=== PATIENT | female | born 1990 | race African-American/Black ===

== ENCOUNTER 2024-10-26 01:22 | Day surgery (SDC) | payer OTHER, SELFPAY ==
[2024-10-03 11:51] VITALS: BMI 50.9
--- NOTE | 2024-10-03 12:00 | PC.NURSE ---
Report to the Outpatient Waiting Room, entrance under the green pavilion located off [facility], at time _0800_ on date _[id number]_. Planned Procedure Time: _1000_.? Time changes happen often and if your time is changed the preop area will call you the afternoon before. - You and your visitor will be asked to self-screen and do not enter if you have any COVID symptoms. Please call surgeon if you need to reschedule. - A mask is optional within the hospital at this time. Patients may have clear liquids (water, carbonated beverages, clear teas, apple juice) until 3 hours prior to surgery with a maximum of 20 ounces. - No food from midnight until time of surgery and no smoking, or chewing tobacco (or any form of nicotine). No chewing gum, candy or mints. Take only the following medications with a SIP of water on the morning of surgery: ___Inhalers if needed.____ DO NOT STOP ANY OF YOUR OTHER PRESCRIPTION MEDICATIONS PRIOR TO SURGERY EXCEPT THE FOLLOWING Hold all vitamins and supplements for 3 days per anesthesiologist. Medications to discontinue per physician Date to take last dose Please no make-up, nail persian, hairspray, perfume, deodorant, or body powder the day of surgery.? No jewelry (including any body piercings) or valuables the day of surgery, leave them at home.? Please take a shower or bath the night before, or the morning of, surgery with an antibacterial soap.? Wear comfortable, loose fitting clothing.? - Jewelry must be removed prior to entering the operating room.? Rings and piercings that are not removed may be cut off. - The hospital will not accept responsibility for valuables.? - Please leave all valuables, including medications, at home the day of surgery. If you are going home after surgery, a licensed tank driver must drive you home.? - NO public transportation without another adult if you receive anesthesia. - We recommend that an adult stay with you for 24 hours following discharge. - We also recommend that you do not drive, make important decision, drink alcoholic beverages, or take any drugs that were not prescribed by your health care provider for at least 24 hours after your discharge time. Follow any additional instructions given to you from your surgeon. Telephone instructions given to __Erin__and asked if any additional questions and then verbalized understanding. Patient advised to call surgeon office or pre surgery nurse liaison [phone] if any additional questions.
--- NOTE | 2024-10-12 14:00 | SUR.PREOP ---
PER PATIENT NO CHANGED IN HEALTH HISTORY OR MEDICATION LIST SINCE PREVIOUS INTERVIEW ON 10/03/24. NEW TIMES AND INSTRUCTIONS PROVIDED TO PATIENT BY THIS RN.
--- NOTE | 2024-10-12 14:01 | SUR.PREOP ---
Report to the Outpatient Waiting Room, entrance under the green pavilion located off [facility], at time _0730_ on date _10-26-2024_. Planned Procedure Time: _0930_.? Time changes happen often and if your time is changed the preop area will call you the afternoon before. - You and your visitor will be asked to self-screen and do not enter if you have any COVID symptoms. Please call surgeon if you need to reschedule. - A mask is optional within the hospital at this time. Patients may have clear liquids (water, carbonated beverages, clear teas, apple juice) until 3 hours (0630) prior to surgery with a maximum of 20 ounces. - No food from midnight until time of surgery and no smoking, or chewing tobacco (or any form of nicotine). No chewing gum, candy or mints. - Infants may have breast milk until 4 hours before surgery, infant formula 6 hours prior to surgery. - Children will be allowed to drink immediately following surgery.? If applicable, please bring a bottle or sippy cup to assist with drinking. Juice, water, soda, and popsicles are readily available.? For infants on formula, please bring formula the day of surgery.? Pacifiers are allowed. Take only the following medications with a SIP of water on the morning of surgery: _Inhaler if needed_ DO NOT STOP ANY OF YOUR OTHER PRESCRIPTION MEDICATIONS PRIOR TO SURGERY EXCEPT THE FOLLOWING Hold all vitamins and supplements for 3 days per anesthesiologist. Medications to discontinue per physician _NA_ Date to take last dose_NA_ Please no make-up, nail malay, hairspray, perfume, deodorant, or body powder the day of surgery.? No jewelry (including any body piercings) or valuables the day of surgery, leave them at home.? Please take a shower or bath the night before, or the morning of, surgery with an antibacterial soap.? Wear comfortable, loose fitting clothing.? Children are encouraged to wear pajamas. - Jewelry must be removed prior to entering the operating room.? Rings and piercings that are not removed may be cut off. - The hospital will not accept responsibility for valuables.? - Please leave all valuables, including medications, at home the day of surgery. If you are going home after surgery, a licensed student truck driver must drive you home.? - NO public transportation without another adult if you receive anesthesia. - We recommend that an adult stay with you for 24 hours following discharge. - We also recommend that you do not drive, make important decision, drink alcoholic beverages, or take any drugs that were not prescribed by your health care provider for at least 24 hours after your discharge time. For Pediatric surgeries, we recommend two adults accompany the child home. Follow any additional instructions given to you from your surgeon. Telephone instructions given to _Erin_and asked if any additional questions and then verbalized understanding. Patient advised to call surgeon office or pre surgery nurse liaison [phone] if any additional questions.
[2024-10-26] VITALS (9 sets, daily range): BP systolic 124–143; BP diastolic 65–87; PULSE 65–85; RESP 14–20; TEMP 36.1–36.8; O2SAT 100; BMI 51.0
--- OUTSIDE RECORDS SUMMARY | 2024-10-26 01:26 | XMS_ITS | Encounter Summary ---
Author Organization [facility] Address [address] [place] [id number] Care Team Providers Care Barkeeper Name Role Phone Lizbeth Perales MD Primary Care Provider [phone] Encounter Details Date Type Department Care Team (Late st Contact Info) Description 02/06/2022 [facility] [address] [place] [address] [place] [address] [place] [id number] [employer] Social History Tobacco Use Types Packs/Day Years Used Date Smoking Tobacco: Never Smokeless Tobacco: Never Alcohol Use Standard Drinks/Week Comments Yes 0 (1 standard drink = 0.6 oz pur e alcohol) socially PHQ-2 Answer Date Recorded PHQ-2 Score - If the patient scores above 3, please move on to questions 3-9 0 12/13/2020 Comments No Sex and Gender Information Value Date Recorded Sex Assigned at Not on file Legal Sex Female 8:11 PM CDT Gender Identity Female 09/16/2021 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 No / Unsure 01/31/2022 9:01 AM CDT documented as of this encounter Progress Notes * Vito Espinal MA - 03/19/2022 4:11 PM CDT Pt informed and will call to schedule appt once she recieves medication * Lizbeth Perales MD - 03/19/2022 2:40 PM CDT Sent Contrave Rx to [place] for this pt. Pt italia lneed an appt for 1 month from when she starts this regimen to assess the effectiveness of it. Thanks! ~Dr Amato * Vito Espinal MA - 03/19/2022 2:08 PM CDT Called pt to check to see if this was done. And it was not can you send pt medication for[place]rave to [place] * Karla Green - 03/19/2022 2:03 PM CDT This message was sent to the triage pool on 02/06. Its more of an FYI, but I wasn't sure if Dr. Perales has seen it yet. * Karla Green - 03/19/2022 2:03 PM CDTFrom: Erin Lowe To: Dr. Lizbeth Perales Sent: 02/06/2022 4:14 PM CDT Subject: RAFAEL Perales, I have enrolled in the [employer] Savings Coupon Card. 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
--- OUTSIDE RECORDS SUMMARY | 2024-10-26 01:26 | XMS_ITS | Referral Summary ---
Author Organization [facility] Address [address] [place] [address] Care Team Providers Care Van Driver Helper Name Role Phone Shweta Ambrose APRN Primary Ca re Provider Encounters Date Type Department Care Team Description 09/29/2024 Plan of Care Documentation [facility] OP Physical Therapy [address] [place] [id number] 09/29/2024 2:30 PM PUBLIC SAFETY OFFICER Therapy [facility] OP Physical Therapy [address] [place] [phone] Debora Calderon, PT Coccyx pain (Primary Dx); Pelvic and perineal pain 09/16/2024 9:30 AM PUBLIC SAFETY OFFICER Office Visit [facility] Care at [address] [phone] Sara Coronado NP Influenza A (Primary Dx); Upper respiratory tract infection, unspecified type 09/05/2024 9:43 AM PUBLIC SAFETY OFFICER - 09/05/2024 11:59 PM PUBLIC SAFETY OFFICER Hospital Encounter [facility] [address] [place] [id number] Low back pain, unspecified back pain laterality, unspecified chronicity, unspecified whether sciatica present; Right hip pain Discharge Disposition: Discharge to home or self care 08/31/2024 Documentation [facility] OP Physical Therapy [address] [place] [id number] Debora Calderon, PT from Last 3 Months Allergies Active Allergy Reactions Criticality Noted Date Comments Amoxicillin Rash Medium 03/23/2023 Cephalexin Rash Medium 03/23/2023 Erythromycin Rash Medium 03/23/2023 Lactose Diarrhea High 1991 Nisoldipine Rash Medium 12/13/2020 Penicillins Anaphylaxis High 03/23/2023 Sulfa Rash Medium 03/23/2023 Medications vitamin ferrous fumarate-folic () 28 mg iron- 800 mcg tablet Take 1 tablet by mouth daily 1 po qd 90 tablet 3 09/04/19 24 Active blood-glucose sensor (Dexcom G7 Sensor) device 1 Units continuously Change sensor every 10 days 3 each 11 09/10/19 24 Active norethindrone (MICRONOR) 0.35 mg tabletIndications : Contraception Take 1 tablet (0.35 mg total) by mouth daily 28 tablet 12 10/14/19 24 Active polyethylene glycol (MIRALAX) 17 gram/dose bulk powder Take 17 g by mouth daily as needed (consitpation) 289 g 10/14/19 24 Active acetaminophen 500 mg capsuleIndication s:Pain Take 2 capsules (1,000 mg total) by mouth every 6 (six) hours as needed (pain) 60 tablet 10/14/19 24 Active docusate sodium (COLACE) 100 mg capsuleIndication s:constipation,St ool Softener Take 1 capsule (100 mg total) by mouth 2 (two) times a day as needed for constipation 30 capsule 10/14/19 24 Active ibuprofen (ADVIL,MOTRIN) 600 mg tabletIndications :Cramps Take 1 tablet (600 mg total) by mouth every 6 (six) hours as needed for pain 60 tablet 10/14/19 24 Active lidocaine (ASPERCREME) 4 % adhesive patch,medicated Place 1 patch on the skin daily 20 patch 10/14/19 24 Active NIFEdipine (PROCARDIA XL/ADALAT CC) 30 mg 24 hr tablet Take 1 tablet (30 mg total) by mouth daily 30 tablet 11 10/19/19 24 Active cyclobenzaprine (FLEXERIL) 10 mg tablet Take 1 tablet (10 mg total) by mouth 2 (two) times a day as needed 08/25/19 25 Active Active Problems Problem Noted Date Diagnosed Date Encounter for induction of labor 10/12/2023 Overview (10/12/2023): Erin Lowe is a 33 y.o. female at 39w1d who is dated by L=1 and is being admitted for IOL. Admit to L&D: Consents signed and placed in chart. Labs: CBC and T&S pending. Induction of labor with CC/miso . FWB: Continuous monitoring. Reactive NST. ID: 3rd trimester HIV (>28 wga) negative on 09/04. GBS positive on 09/04, will start vancomycin due to PCN allergy and no clindamycin susceptibilities . RPR on admission: negative. History of genital HSV or HSV 1/2 seropositivity: No. Membrane Status: intact. Indications for UDS: none. Verbal consent obtained for UDS: Not indicated. MOF: Plans to breastfeed. Urine drug screen not indicated. Patient informed of results: N/A. MOC: Plans to use POPs for contraception. Pain management: Undecided on epidural. Post DVT prophylaxis: The patient has the following MAJOR risk factors BMI >/= 40 and the following MINOR risk factors none. enoxaparin 40 mg daily will be ordered for VTE prophylaxis . #T2DM - BG well controlled on no meds, previously on lantus but d/c 09/27. For OB insulin protocol. #MO: BMI 54 #Migraines - not taking sumatriptan #Asthma - mod persistent - Symbicort prn Gestational hypertension, third trimester 2023 care following vaginal delivery 10/11 Overview (10/14/2023): # ID: Afebrile. No signs/symptoms of infection. # Heme: Hgb 10.5 > EBL 200 mL. Hemodynamically stable # CV/Pulm: #Gestational hypertension - Since delivery, BPs well controlled on no meds. Asymptomatic, denies OWUSU/RUQ pain/vision changes. CBC/CMP wnl. Enrolled in home BP monitoring- received text. BP normotensive in the last 24 hours. #Asthma - mod persistent - Symbicort prn #T2DM - BG well controlled on no meds, previously on lantus but d/c 3/. SSI . PPD#1 fasting BG 84. #Migraines - not taking sumatriptan, ctm and treat as needed # GI/: Tolerating PO. Voiding spontaneously. # Pain: Largely Controlled with above regimen. Lidocaine patches added # MOC: Progestin-only pills. # MOF: . Urine drug screen not indicated. Patient informed of results: N/A. # Post DVT prophylaxis: The patient has the following MAJOR risk factors BMI >/= 40 and the following MINOR risk factors none. enoxaparin 40 mg BID ordered for VTE prophylaxis. # Disposition: Follow up task sent to [facility] scheduling pool. Desires discharge home today. CDP: GBS bacteriuria 09/10/2023 Overview (10/08/2023): GBSuria, allergy to penicillin. Her mom had SJS when she tried a drug she was allergic to. Patient reports rash with anaphylaxis. Cephalosporin allergy listed in chart. Urine culture with GBS without clinda susceptibilities, given IOL in 4 days likely not time to determine clinda susceptibilities Plan: - Plan for vancomycin for GBS ppx in labor CDP: Urinary tract infection 09/09/2023 Overview (09/10/2023): Enterococcus UTI noted in 1st trimester. S/p antibiotic course with primary OBGYN - Repeat urine culture 09/04 [facility] GBS CDP: Supervision of high-risk , third t rimester 09/06/2023 Overview (10/01/2023): *Comanaged with Dr. Tosin Plascencia* - plans to deliver with Dr. Plascencia (works in her clinic) - 09/17/23 Now planning to deliver at [facility] IOL 10/12/23 @ 0600 AM 1st Trimester: [x] Dating Criteria: L=1 [x] Labs: Rh positive, Ab negative, CBC Hgb 11.1, Rubella imm, VZV immune, HIV NR, RPR NR, HepBSAg NR, Hep C Ab NR [x] GC/CT/Trich: neg/neg/neg [x] UCx: Enterococcus [x] vitamins: taking [x] Genetic Screening: NIPT/AFP screen negative [x] CF/SMA carrier screening: negative [x] Hgb electrophoresis: nml [x] Pap: due, plan for PP pap [] EPDS: PNBHS referral (if indicated) [x] ASA at 12 weeks (if indicated): prescribed, patient not taking regularly, counseled on daily use [x] DM screening: HgbA1c 6.2 on 11/11/2022 (<5.7: no further test until 2T screen, 5.7-6.5: obtain 2h GTT, >6.5: refer to CDP) [] Feeding Preferences: benefits of discussed with patient at RN IOB 2nd Trimester: [x] Anatomy ultrasound: 09/10 incomplete, tasked for anatomy completion [] CBC: not documented in OB records [x] 1hr GTT (24-28wks): 170. 3H GTT: 101/137/176/152 [] Flu Shot (Mar-Jun): not documented in OB records [x] Tdap (27-36wks): Jun 2023 [x] Rhogam (if Rh neg): n/a [] Childbirth classes discussed [] education (colostrum, expected breast changes, plan for RTW) and breast pump ordered [] Second trimester education packet 3rd Trimester: [x] CBC/HIV/RPR/T&S: Hgb 11.4/NR/deferred [x] GBS: GBS bacteriuria noted on 09/04, <100K colonies [x] GC/CT/Trich (if indicated): neg/neg/neg [] RSV vaccine [x] Final discussion (Skin to skin, Baby Friendly, LC Support, PP experience) [] Third trimester education packet Last visit: [] Last clinic visit SVE: [] IOL start agent: [] Epidural: [] Consents signed: Counseling: [x] Method of delivery: Now per [facility] [] Bottle of CHG 4% and hand out provided @ 36wks (if planned) [x] Timing of delivery: per primary [x] MOC: Discussed pill, injection, implant, IUDs. Unsure. Will consider. Plans to wait 2 years to Have another . Undecided. [x] MOF: Plans breast. [x] education: completed in all 3 trimesters [x] Head Counselor: Discussed [x] Car seat: Discussed [x] PP depression counseling CDP: Asthma affecting in third trimest er 09/06/2023 Overview (10/01/2023): - Severity classification: Moderate persistent - Baseline peak flow: 410/460/400 - Current regimen: Symbicort PRN S/p counseling. Plan [] Peak flow measurement if sx [] Serial growth scans and twice weekly NSTs if moderate persistent severe persistent [] PFTs if if severe persistent [] Referral to pulmonology if control not adequate, history of life-threatening exacerbation, co-existing pulmonary pathology, severe persistent, or requiring continuous oral corticosteroids or high dose inhaled corticosteroids CDP: Obesity affecting in third [facility] 09/06/2023 Overview (10/07/2023): BMI: 53 S/p counseling. Plan [x] Specialized anatomy ultrasound - 09/10 [x] Serial growth ultrasounds q4 weeks starting at 24 weeks (ordered) [x] Anesthesia consult in third trimester if BMI > 50 - s/p [facility] Anesthesia visit on 10/04 [x] Weekly testing starting at 34 weeks given BMI of 40+ (ordered) Hyperemesis gravidarum 09/06/2023 Overview (09/06/2023): Reflected in records. Managed with zofran. During 09/04 visit, patient reports nausea/vomiting 2/2 metformin, otherwise symptoms well controlled. CDP:T2DM 09/06/2023 Overview (10/08/2023): Diagnosis - 1-hour OGTT: 170 mg/dL - 3-hour OGTT: 101/137/176/152 - Hgb A1C: 7.0 (01/2021) - Hgb A1C: 6.2 (11/11/22) S/p counseling. fUS (09/27): EFW 2746g (22%) Current regimen: Nothing, previously on Lantus 20u nightly (discontinued 09/27) Plan [x] Serial growth scans q4 weeks (ordered) [x] testing twice weekly starting at 32 weeks (ordered) [x] Delivery at 39 0/7 - 39 6/7 weeks gestation: IOL scheduled on 10/11 [] 2 hour/75g OGTT at visit Resolved Problems Problem Noted Date Diagnosed Date Resolved Date Type 2 diabetes mellitus, wi thout long-term current use of insulin 09/06/2023 09/17/2023 Overview (09/06/2023): Patient states she has a history of Type II DM. records that are scanned into media do not reflect management of diabetes during . Patient states she is prescribed metformin 500mg BID but is unable to tolerate due to GI upset. She is interested in starting insulin. Lab Values - Hgb A1C: 6.2 (11/11/22) - 1h GTT: 170 - 3h GTT: 101/137/176/152 Glucose log available on cell phone babak. Desires to be co-managed between private OBGYN and [facility]. Bacterial vaginosis in 09/06/2023 09/17/2023 Overview (09/06/2023): Noted during routine OB visit. S/p metronidazole x7d. Asymptomatic on 09/04 visit. Diabetes mellitus type 2 in obese 03/14/2021 09/17/2023 Immunizations Immunization Administration Dates Next Due MMR 10/13/2023(Deferred: Patient Ref used) Varicella 10/14/2023(Deferred: No longer n eeded) Social History Tobacco Use Types Packs/Day Years Used Date Smoking Tobacco: Never Smokeless Tobacco: Never Tobacco Cessation:Counseling Given: Not Answered [facility] Harry'sities Answer Date Recorded In the past 12 months has e [employer], gas, oil, or water [employer] threatened to shut off services in your home? No 10/13/2023 Social Connection and Isolat ion Panel [NHANES] Answer Date Recorded In a typical week, how many times do you talk on the phone with family, friends, or neighbors? More than three times a week 10/19/2023 How often do you get togethe r with friends or relatives? More than three times a week 10/19/2023 How often do you attend chur ch or methodist services? More than 4 times per year 10/19/2023 Do you belong to any clubs o r organizations such as holiness groups, unions, fraternal or athletic groups, or school groups? No 10/19/2023 How often do you attend meet ings of the clubs or organizations you belong to? Never 10/19/2023 Are you , , di vorced, , never , or living with a partner? Never 10/19/2023 Overall Financial Resource Strain (CARDIA) Answe r Date Recorded How hard is it for you to pa y for the very basics like food, housing, medical care, and heating? Not hard at all 10/19/2023 Hunger Vital Sign Answer Date Recorded Within the past 12 months, y ou worried that your food would run out before you got the money to buy more. Never true 10/19/19 24 Within the past 12 months, t he food you bought just didn't last and you didn't have money to get more. Never true 10/19/2023 PRAPARE - Transportation Answer Date Re corded In the past 12 months, has l ack of transportation kept you from medical appointments or from getting medications? No 09/25 In the past 12 months, has l ack of transportation kept you from meetings, work, or from getting things needed for daily living? No 10/19/2023 Housing Stability Vital Sign Answer Adilson e Recorded In the last 12 months, was t here a time when you were not able to pay the mortgage or rent on time? No 10/19/2023 In the last 12 months, how many places have you lived? 1 10/19/2023 In the last 12 months, was t here a time when you did not have a steady place to sleep or slept in a senior care (including now)? No 10/19/2023 Personal Safety Answer Date Recorded Have you ever been in or are you currently in a harmful physical or emotional relationship or is someone making you feel afraid or unsafe? Denies 05/20/2024 Comments No Sex and Gender Information Value Date Recorded Sex Assigned at Not on file Legal Sex Female 10:48 PM PUBLIC SAFETY OFFICER Gender Identity Female 09/03/2023 12:05 PM PUBLIC SAFETY OFFICER Sexual Orientation Straight 09/03/2023 12 :05 PM PUBLIC SAFETY OFFICER Last Filed Vital Signs Vital Sign Reading Time Taken Comments Blood Pressure 122/72 09/16/2024 9:16 AM PUBLIC SAFETY OFFICER Pulse 108 09/16/2024 9:16 AM PUBLIC SAFETY OFFICER Temperature 36.1 C (96.9 F) 09/16/2024 9:16 AM PUBLIC SAFETY OFFICER Respiratory Rate 18 09/16/2024 9:16 AM PUBLIC SAFETY OFFICER Oxygen Saturation 98% 09/16/2024 9:16 AM PUBLIC SAFETY OFFICER Inhaled Oxygen Concentration - - Weight 141.5 kg (312 lb) 09/16/2024 9:16 AM PUBLIC SAFETY OFFICER Height 167.6 cm (5' 6 ) 09/16/2024 9:16 AM PUBLIC SAFETY OFFICER Body Mass Index 50.36 09/16/2024 9:16 AM PUBLIC SAFETY OFFICER Plan of Treatment Not on file Procedures Procedure Name Priority Date/Time Associated Diagnosis Comments POC INFLUENZA A/B, COVID-19 ANTIGEN Routine 09/16/2024 9:28 AM PUBLIC SAFETY OFFICER Upper respiratory tract infection, unspecified type XR HIP RIGHT 2 OR 3 VIEWS Schedule Routine, Read Routine (OP Routine) 09/05/2024 9:59 AM PUBLIC SAFETY OFFICER Right hip pain XR SPINE LUMBAR 2 OR 3 VIEWS Schedule Routine, Read Routine (OP Routine) 09/05/2024 9:59 AM PUBLIC SAFETY OFFICER Low back pain, unspecified back pain laterality, unspecified chronicity, unspecified whether sciatica present from Last 3 Months Results * (ABNORMAL) POC Influenza A/B, COVID-19 antigen (09/16/2024 9:28 AM PUBLIC SAFETY OFFICER) Influenza A Ag, POC Positive(A) Negative [facility] Influenza B Ag, POC Negative Negative [facility] COVID-19 Ag POC Presumptive Negative Presumptive Negative, Invalid [facility] Nasal 09/16/2024 9:28 AM PUBLIC SAFETY OFFICER us Sara Coronado NP POINT OF CARE TEST ORDERABLE S Final Result [facility] [address] [place] [address] * XR Hip Right 2 or 3 Views (09/05/2024 9:59 AM PUBLIC SAFETY OFFICER) Anatomical Region Laterality Modality Lower Extremities, Hip, Pelvis Right C omputed Radiography 09/07/2024 9:26 AM PUBLIC SAFETY OFFICER Narrative 09/07/2024 9:32 AM PUBLIC SAFETY OFFICER EXAM DESCRIPTION: XR SPINE LUMBAR 2 OR 3 VIEWS; XR HIP RIGHT 2 OR 3 VIEWS REASON FOR STUDY: pain Chronic lower back pain and right hip pain. Worsening pain x 1 month. Nki FINDINGS: Three views of the lumbar spine and two views of the right hip are submitted for interpretation. No prior examination is available for comparison. Mild levocurvature of the lumbar spine. Disc heights are normal. No compression fracture. A sacralized L5 segment is present. Alignment of the right hip is anatomic. The right hip joint space is normal. No fracture. IMPRESSION: Normal right hip radiographs. Mild lumbar levocurvature. THIS IS AN ELECTRONICALLY VERIFIED FINAL REPORT 09/07/2024 9:32 AM - Electronically signed by Greg Abebe M.D. TH: TH Report ID: [id number] Reading Location: [place] [address] Procedure Note Greg Abebe MD - 09/07/2024 EXAM DESCRIPTION: XR SPINE LUMBAR 2 OR 3 VIEWS; XR HIP RIGHT 2 OR 3 VIEWS REASON FOR STUDY: pain Chronic lower back pain and right hip pain. Worsening pain x 1 month. Nki FINDINGS: Three views of the lumbar spine and two views of the right hipare submitted for interpretation. No prior examination is available for comparison. Mild levocurvature of the lumbar spine. Disc heights are normal. No compression fracture. A sacralized L5 segment is present. Alignment of the right hip is anatomic. The right hip joint space isnormal. No fracture. IMPRESSION: Normal right hip radiographs. Mild lumbar levocurvature. THIS IS AN ELECTRONICALLY VERIFIED FINAL REPORT 09/07/2024 9:32 AM - Electronically signed by Greg Abebe M.D. TH: TH Report ID: [id number] Reading Location: [place] [address] Shweta Ambrose APRN IMG XR PROC EDURES Final Result * XR Spine Lumbar 2 or 3 Views (09/05/2024 9:59 AM PUBLIC SAFETY OFFICER) Anatomical Region Laterality Modality Spine N/A Computed Radiogr aphy 09/07/2024 9:26 AM PUBLIC SAFETY OFFICER Narrative 09/07/2024 9:32 AM PUBLIC SAFETY OFFICER EXAM DESCRIPTION: XR SPINE LUMBAR 2 OR 3 VIEWS; XR HIP RIGHT 2 OR 3 VIEWS REASON FOR STUDY: pain Chronic lower back pain and right hip pain. Worsening pain x 1 month. Nki FINDINGS: Three views of the lumbar spine and two views of the right hip are submitted for interpretation. No prior examination is available for comparison. Mild levocurvature of the lumbar spine. Disc heights are normal. No compression fracture. A sacralized L5 segment is present. Alignment of the right hip is anatomic. The right hip joint space is normal. No fracture. IMPRESSION: Normal right hip radiographs. Mild lumbar levocurvature. THIS IS AN ELECTRONICALLY VERIFIED FINAL REPORT 09/07/2024 9:32 AM - Electronically signed by Greg Abebe M.D. TH: TH Report ID: [id number] Reading Location: [id number] Procedure Note Greg Abebe MD - 09/07/2024 EXAM DESCRIPTION: XR SPINE LUMBAR 2 OR 3 VIEWS; XR HIP RIGHT 2 OR 3 VIEWS REASON FOR STUDY: pain Chronic lower back pain and right hip pain. Worsening pain x 1 month. Nki FINDINGS: Three views of the lumbar spine and two views of the right hipare submitted for interpretation. No prior examination is available for comparison. Mild levocurvature of the lumbar spine. Disc heights are normal. No compression fracture. A sacralized L5 segment is present. Alignment of the right hip is anatomic. The right hip joint space isnormal. No fracture. IMPRESSION: Normal right hip radiographs. Mild lumbar levocurvature. THIS IS AN ELECTRONICALLY VERIFIED FINAL REPORT 09/07/2024 9:32 AM - Electronically signed by Greg Abebe M.D. TH: TH Report ID: [id number] Reading Location: [place] [address] Shweta Ambrose APRN IMG XR PROC EDURES Final Result from Last 3 Months Insurance [employer] OPEN ACCESS Member Subscriber Plan / Payer (Ef fective 2018-Present) Name:Erin Lowe Relation to Subscriber:Self Name:Erin Lowe Payer ID:[id number] Type:[employer] AGLINK HMO/PPO Address: [address] [employer] OPEN ACCESS [employer] OPEN ACCESS [facility] HE[employer] OPEN ACCESS [facility] Advance Directives For more information, please contact: [phone] * Full Code (Latest Code Status on File) Date Activated Date Inactivated Comments 10/12/2023 11:00 PM 10/14/2023 6:24 PM * Full Code Date Activated Date Inactivated Comments 10/12/2023 10:08 PM 10/12/2023 11:00 PM * Full Code Date Activated Date Inactivated Comments 10/12/2023 6:27 AM 10/12/2023 10:08 PM Full CPR in case of cardiopulmonary arrest Care Teams Van Driver Helper Relationship Specialty Start Date End Date Shweta Ambrose APRN [address] [place] [id number] PCP - General Nurse Practitioner 03/23/23
--- OUTSIDE RECORDS SUMMARY | 2024-10-26 01:26 | XMS_ITS | Clinical Summary ---
Author Organization [facility] Address [address] [place] [address] Care Team Providers Care Tripoler Name Role Phone Shweta Ambrose APRN Primary Ca re Provider Allergies Active Allergy Reactions Criticality Noted Date [...] no meds, previously on lantus but d/c 3/4. For OB insulin protocol. #MO: BMI 54 [...] # Disposition: Follow up task sent to [facility] scheduling pool. Desires discharge home today. CDP: [...] - 09/17/23 Now planning to deliver at [facility] IOL 10/12/23 @ 0600 AM 1st [...] Counseling: [x] Method of delivery: Now per [facility] [] Bottle of CHG 4% and hand out provided @ 36wks (if planned) [x] Timing of delivery: per primary [x] MOC: Discussed pill, injection, implant, IUDs. Unsure. Will consider. Plans to wait 2 years to Have another . Undecided. [x] MOF: Plans breast. [x] education: completed in all 3 trimesters [x] Cold Storage Worker: Discussed [x] Car seat: Discussed [x] PP depression counseling CDP: Asthma affecting in third [facility] 09/06/2023 Overview (10/01/2023): - Severity classification: [...] inhaled corticosteroids CDP: Obesity affecting in third [facility] 09/06/2023 Overview (10/07/2023): BMI: 53 S/p counseling. Plan [x] Specialized anatomy ultrasound - 09/10 [x] Serial growth ultrasounds q4 weeks starting at 24 weeks (ordered) [x] Anesthesia consult in third trimester if BMI > 50 - s/p [facility] Anesthesia visit on 10/04 [x] Weekly [...] Resolved Date Type 2 diabetes mellitus, [place] [facility] long-term current use of insulin 09/06/2023 09/17/2023 [...] to be co-managed between private OBGYN and [facility]. Bacterial vaginosis in 09/06/2023 09/17/2023 Overview (09/06/2023): Noted during routine OB visit. S/p metronidazole x7d. Asymptomatic on 09/04 visit. Diabetes mellitus type 2 in obese 03/14/2021 09/17/2023 Encounters Date Type Department Care Team Description 09/29/2024 2:30 PM PROJECT DEVELOPMENT ENGINEER Therapy [facility] OP Physical Therapy [address] [place] [id number] Debora Calderon, PT Coccyx pain (Primary Dx); Pelvic and perineal pain 09/29/2024 Plan of Care Documentation [facility] Physical Therapy [address] [place] [phone] 09/16/2024 9:30 AM PROJECT DEVELOPMENT ENGINEER Office Visit [facility] [place] [address] [place] [address] Sara Coronado NP Influenza A (Primary Dx); Upper respiratory tract infection, unspecified type 09/05/2024 9:43 AM PROJECT DEVELOPMENT ENGINEER - 09/05/2024 11:59 PM PROJECT DEVELOPMENT ENGINEER Hospital Encounter [facility] [address] [place] [address] Low back pain, unspecified back pain laterality, unspecified chronicity, unspecified whether sciatica present; Right hip pain Discharge Disposition: Discharge to home or self care 08/31/2024 Documentation [facility] Physical Therapy [address] [place] [phone] Debora Calderon, PT from Last 3 Months Immunizations Immunization Administration Dates Next Due MMR 10/13/2023(Deferred: Patient Ref used) Varicella 10/14/2023(Deferred: No longer n eeded) Surgical History Surgery Date Site/Laterality Comments TONSILLECTOMY Social History Tobacco Use Types Packs/Day Years Used Date Smoking Tobacco: Never Smokeless Tobacco: Never Tobacco Cessation:Counseling Given: Not Answered [facility] Utilities Answer Date Recorded In the past 12 months has [employer], gas, oil, or water [employer] threatened to shut off services in your [...] 10/19/2023 How often do you attend chur or spiritism services? More than 4 times per year 10/19/2023 Do you belong to any clubs o r organizations such as hindu groups, unions, fraternal or athletic groups, or [...] place to sleep or slept in a halfway (including now)? No 10/19/2023 Personal Safety Answer Date Recorded Have you ever been in or are you currently in a harmful physical or emotional relationship or is someone making you feel afraid or unsafe? Denies 05/20/2024 Comments No Sex and Gender Information Value Date Recorded Sex Assigned at Not on file Legal Sex Female 10:48 PM PROJECT DEVELOPMENT ENGINEER Gender Identity Female 09/03/2023 12:05 PM PROJECT DEVELOPMENT ENGINEER Sexual Orientation Straight 09/03/2023 12 :05 PM PROJECT DEVELOPMENT ENGINEER Obstetrics History Para Term AB IAB SAB Ectopic Multiple Livin g Live Births 1 1 1 0 1 1 Date Outcome GA Total Labor Labor/2nd/3rd Weight Sex Type Anes PTL Merry A1 A5 Name Clin 2023 Term 39w 1d 0h 10m 0h 07m/0h 03m 2.58 kg (5 lb 11 oz) F Vagina l Epidur al N Livin g 8 9 Kins[place] ey Deisi orozco, Peyman Smith MD Complications:None Delivery Location:[facility] Main C ampus ([facility] 58LD) Last Filed Vital Signs Vital Sign Reading Time Taken Comments Blood Pressure 122/72 09/16/2024 9:16 AM PROJECT DEVELOPMENT ENGINEER Pulse 108 09/16/2024 9:16 AM PROJECT DEVELOPMENT ENGINEER Temperature 36.1 C (96.9 F) 09/16/2024 9:16 AM PROJECT DEVELOPMENT ENGINEER Respiratory Rate 18 09/16/2024 9:16 AM PROJECT DEVELOPMENT ENGINEER Oxygen Saturation 98% 09/16/2024 9:16 AM PROJECT DEVELOPMENT ENGINEER Inhaled Oxygen Concentration - - Weight 141.5 kg (312 lb) 09/16/2024 9:16 AM PROJECT DEVELOPMENT ENGINEER Height 167.6 cm (5' 6 ) 09/16/2024 9:16 AM PROJECT DEVELOPMENT ENGINEER Body Mass Index 50.36 09/16/2024 9:16 AM PROJECT DEVELOPMENT ENGINEER Plan of Treatment Health Maintenance Due Date Last Done Comments Cervical Cancer Screening 1991 Depression Screening 1991 Hepatitis C Screening 1991 Regular Well Visit/Exam 18-64 2009 Pneumococcal vaccine <65 (2 of 2 - PCV) 08/11/2017 08/11/2016 Covid-19 Vaccine (3 - season) 2024 10/29/2020, 10/07/2020 Influenza Vaccine (Season Ended) 2025 08/11/2016, 08/11/2016 DTaP/Tdap/Td Vaccine (9 - Td or Tdap) 07/23/2033 07/23/2023, 01/23/2010, 01/23/2006, Additional history exists Varicella Vaccines Completed 12/23/1995, 05/29/1993 Hepatitis B Screening Completed 03/16/2000 , 05/04/1998, 06/02/1997, Additional history exists HPV Vaccines Aged Out No longer eligi ble based on patient's age to complete this topic Procedures Procedure Name Priority Date/Time Associated Diagnosis Comments POC INFLUENZA A/B, COVID-19 ANTIGEN Routine 09/16/2024 9:28 AM PROJECT DEVELOPMENT ENGINEER Upper respiratory tract infection, unspecified type XR HIP RIGHT 2 OR 3 VIEWS Schedule Routine, Read Routine (OP Routine) 09/05/2024 9:59 AM PROJECT DEVELOPMENT ENGINEER Right hip pain XR SPINE LUMBAR 2 OR 3 VIEWS Schedule Routine, Read Routine (OP Routine) 09/05/2024 9:59 AM PROJECT DEVELOPMENT ENGINEER Low back pain, unspecified back pain laterality, unspecified chronicity, unspecified whether sciatica present from Last 3 Months Results * (ABNORMAL) POC Influenza A/B, COVID-19 antigen (09/16/2024 9:28 AM PROJECT DEVELOPMENT ENGINEER) Influenza A Ag, POC Positive(A) Negative [facility] Influenza B Ag, POC Negative Negative [facility] [place] COVID-19 Ag POC Presumptive Negative Presumptive Negative, Invalid [facility] [place] Nasal 09/16/2024 9:28 AM PROJECT DEVELOPMENT ENGINEER Sara Coronado NP POINT OF CARE TEST ORDERABLE S Final Result Performing Organization Address City/State/[facility] Co de Phone Number [facility] [address] [place] [address] * XR Hip Right 2 or 3 Views (09/05/2024 9:59 AM PROJECT DEVELOPMENT ENGINEER) Anatomical Region Laterality Modality Lower Extremities, Hip, Pelvis Right C omputed Radiography 09/07/2024 9:26 AM PROJECT DEVELOPMENT ENGINEER Narrative 09/07/2024 9:32 AM PROJECT DEVELOPMENT ENGINEER EXAM DESCRIPTION: XR SPINE LUMBAR 2 OR [...] Greg Abebe M.D. TH: TH Report ID: [id number] Reading Location: [id number] Procedure Note Greg Abebe MD - 09/07/2024 [...] Greg Abebe M.D. TH: TH Report ID: [id number] Reading Location: [id number] Shweta Ambrose APRN IMG XR PROC EDURES Final Result * XR Spine Lumbar 2 or 3 Views (09/05/2024 9:59 AM PROJECT DEVELOPMENT ENGINEER) Anatomical Region Laterality Modality Spine N/A Computed Radiogr aphy 09/07/2024 9:26 AM PROJECT DEVELOPMENT ENGINEER Narrative 09/07/2024 9:32 AM PROJECT DEVELOPMENT ENGINEER EXAM DESCRIPTION: XR SPINE LUMBAR 2 OR [...] Greg Abebe M.D. TH: TH Report ID: [id number] Reading Location: [id number] Procedure Note Greg Abebe MD - 09/07/2024 [...] Greg Abebe M.D. TH: TH Report ID: [id number] Reading Location: [id number] Shweta Ambrose APRN IMG XR PROC EDURES Final Result from Last 3 Months Insurance [employer] [place] [place] [address] [employer] OPEN ACCESS [employer] OPEN ACCESS [facility] [employer] OPEN ACCESS [facility] Advance Directives For more information, please contact: [phone] * Full Code (Latest Code Status on File) Date Activated Date Inactivated Comments 10/12/2023 11:00 PM 10/14/2023 6:24 PM * Full Code Date Activated Date Inactivated Comments 10/12/2023 10:08 PM 10/12/2023 11:00 PM * Full Code Date Activated Date Inactivated Comments 10/12/2023 6:27 AM 10/12/2023 10:08 PM Full CPR in case of cardiopulmonary arrest Care Teams Tripoler Relationship Specialty Start Date End Date Shweta Ambrose APRN [address] [place] [address] PCP - General Nurse Practitioner 03/23/23
--- OUTSIDE RECORDS SUMMARY | 2024-10-26 01:26 | XMS_ITS | Continuity of Care Document ---
Author Organization [facility] Address [address] [place] [address] Phone Care Team Providers Care Housing Assistant Property Manager Name Role Phone Conversion MD, Doctor Unavailable Unavailabl e Allergies, Adverse Reactions, Alerts Substance Reaction Status Criticality No Known Drug Allergies Other Active No I nformation Medications Medication Instructions Dosage Effective Dates (start - stop) Status Comments FLOVENT HFA 110 MCG INHALER 1 BID - Active ALBUTEROL 90 MCG INHALER 2 Q 4HR - Active FLOVENT 110 MCG INHALER 2 BID - No Longer Active ALBUTEROL 90 MCG INHALER 2 Q 4HR - No Longer Active ALBUTEROL 90MCG INHALER 2 Q 4HR - No Longer Active FLOVENT 110MCG INHALER 2 BID - No Longer Active DELTASONE 10MG TABS 4 QD - No Longer Active ALBUTEROL 90MCG INHALER 2 Q 4HR - No Longer Active FLOVENT 110MCG INHALER 2 BID - No Longer Active ALBUTEROL 90MCG PUFFS 2 Q 4HR - No Longer Active FLOVENT 110MCG PUFFS 2 BID 2001 - No Longer Active Advance Directives Directive Yes / No Effective Date File Name No Information Encounters Encounter Description Practice Location Reason(s) For Visit Diagnoses Date Provider Providers Copied on Encounter [facility], [address], [place], [place], [id number], [place] tel:[phone] Conversion Department No Information 1 Conversion Doctor. [address] [place], [address], . [facility], [address], [place], [place], [id number], tel:[phone] [facility] INTRINS[facility] ASTHMA NOS 5 [place] [facility]. [address] [place] [address], [id number], . [phone] [facility], [address], [place], [place], [id number], tel:[phone] [facility] INT ASTHMA W (AC) EXAC 4 [place] [facility]. [address] [place] [address], [id number], . tel:[phone] Family History Family Member Type Diagnosis Age At Onset No Information Payers Payer name Insurance type Covered libertarian ID Authoriza tion(s) No Information Social History Type Description Quantity Date Captured Comments Sex Female Smoking Status No Information Chief Complaint And Reason For Visit No Information Reason For Referral Reason For Referral No Information History Of Present Illness Encounter Date Complaint History Of Prese nt Illness No Information Functional Status Date Functional Assessmen t No Information Instructions Date Instruction Additional Infor mation No Information Assessments Type Assessment Date No Information Patient Care Teams Name Effective Dates (start - stop) Status Members No Information
--- OUTSIDE RECORDS SUMMARY | 2024-10-26 01:26 | XMS_ITS | Clinical Summary ---
Author Organization [facility] Address [address] [place] [address] Care Team Providers Care Used Car Lot Porter Name Role Phone Shweta Ambrose APRN-STAMP MOUNTER Primary Car e Provider Source Comments [facility],non-owned Affiliates and Associated Physician Practices is amultiple site organization consisting of ambulatory clinics and hospital sitesin [place], [place], [place] and [place]. This disclosure is being madepursuant to the Care Everywhere program and may not contain all information available regarding this patient. Last updated 18.[facility] Allergies Active Allergy Reactions Criticality Noted Date Comments Cephalexin Unknown 01/15/2017 Erythromycin Unknown,Rash Medium 1991 Lactose Diarrhea High 1991 Nisoldipine Rash Medium 12/13/2020 Penicillamine Rash Medium 12/13/2020 Penicillins Rash Medium 05/02/2024 Sulfur Anaphylaxis High 05/02/2024 Sulfur Dioxide Rash Medium 1991 Amoxicillin Rash Medium 05/02/2024 Medications * Be aware that medications may not be up to date on this document. Alwaysverify current medications with the patient. Medication Sig Dispensed Refills Start Date End Date Status albuterol (Proventil;Ventolin) (2.5 MG/3ML) 0.083% nebulizer solution USE 1 VIAL VIA NEBULIZER EVERY 6 HOURS NEEDED FOR WHEEZING OR SHORTNESS OF BREATH Active Blood Glucose Monitoring Suppl (ONE TOUCH ULTRA 2) w/Device KIT USE TO TEST BLOOD SUGAR DIRECTED 08/03/2023 Active ibuprofen (Motrin) 600 MG tablet 10/14/2023 Active SUMAtriptan (Imitrex) 100 MG tablet TAKE 1 TABLET BY MOUTH AT EARLY ONSET OF MIGRAINE NEEDED 11/08/2023 Active Encounters Date Type Department Care Team Description 08/05/2024 1:20 PM LABOR TRAINER Video Visit [facility] [address] [place] [address], [place] [address] Jeovany Hart MD Hyperthyroidism 08/05/2024 Telephone [facility] [address] [place] [phone] Jeovany Hart MD Appointment from Last 3 Months Social History Tobacco Use Types Packs/Day Years Used Date Smoking Tobacco: Never Assessed Sex and Gender Information Value Date Recorded Sex Assigned at Not on file Gender Identity Not on file Sexual Orientation Not on file Last Filed Vital Signs Vital Sign Reading Time Taken Comments Blood Pressure 128/83 05/02/2024 2:05 PM CDT Pulse 98 05/02/2024 2:05 PM CDT Temperature - - Respiratory Rate - - Oxygen Saturation 98% 05/02/2024 2:05 PM CDT Inhaled Oxygen Concentration - - Weight 142.9 kg (315 lb) 05/02/2024 2:05 PM CDT Height - - Body Mass Index - - Plan of Treatment Health Maintenance Due Date Last Done Comments PAP SMEAR 1991 HIV SCREENING 2006 HEPATITIS C SCREENING 07/27/2009 DTAP/TDAP/TD VACCINES (1 - Tdap) 2010 HEPATITIS B VACCINE (1 of 3 - 19+ 3-dose series) 2010 COVID-19 VACCINE ( - 2023-2 5 season) 2024 INFLUENZA VACCINE (#1) 2024 08/11/2016 DEPRESSION SCREENING 07/27/2024 ZOSTER VACCINE (1 of 2) 2041 HIB VACCINE Aged Out No longer eligi ble based on patient's age to complete this topic HPV VACCINE Aged Out No longer eligi ble based on patient's age to complete this topic MENINGOCOCCAL (Group B) VACC INE SHARED DECISION-MAKING Aged Out No longer eligibl e based on patient's age to complete this topic MENINGOCOCCAL GROUPS A/C/Y/W VACCINE Aged Out No longer eligible b ased on patient's age to complete this topic PNEUMOCOCCAL VACCINE Aged Out No long er eligible based on patient's age to complete this topic Care Teams Used Car Lot Porter Relationship Specialty Start Date End Date Shweta Ambrose, FREIGHT ROUTER-STAMP MOUNTER [address] [place] [phone] PCP - General Nurse Practitioner 05/02/24
--- OUTSIDE RECORDS SUMMARY | 2024-10-26 01:26 | XMS_ITS | Encounter Summary ---
Author Organization [facility] Address [facility]ly [facility] [place] [address] Care Team Providers Care Outside Sales Advertising Executive Name Role Phone Lizbeth Perales MD Primary Care Provider [phone] Encounter Details Date Type Department Care Team (Late st Contact Info) Description 01/21/2023 MyChart Message Enc [facility] - [facility] [address] [place], [place] [address] [place], [facility] Provider Air Quality Message Social History Tobacco Use Types Packs/Day Years [...] CDT Gender Identity Female 09/16/2021 9:40 AM BED OPERATOR Sexual Orientation Not on file documented as of this encounter Plan of Treatment Not on file documented as of this encounter Visit Diagnoses Not on filedocumented in this encounter Additional Health Concerns Assessment Noted Time PHQ-9 Depression Total Score: 2 12/14/19 9:34 AM CDT documented as of this encounter Care Teams Outside Sales Advertising Executive Relationship Specialty Start Date End Date Lizbeth Perales MD PCP - General 02/05/17 documented as of this encounter
--- OUTSIDE RECORDS SUMMARY | 2024-10-26 01:26 | XMS_ITS | Clinical Summary ---
Author Organization [facility] Care Team Providers Care Catering Coordinator Name Role Phone Unavailable Primary Care Provider Unavailabl e Social History Tobacco Use Types Packs/Day Years Used Date Smoking Tobacco: Never Assessed Comments Unknown Sex and Gender Information Value Date Recorded Sex Assigned at Not on file Legal Sex Female 11:21 AM MANAGER CRISIS Gender Identity Not on file Sexual Orientation Not on file Plan of Treatment Health Maintenance Due Date Last Done Comments Hepatitis C Virus (HCV) Screening 1991 TdaP Immunization 1991 Hepatitis B Immunization (1 of 3 - 19+ 3-dose series) 2010 Pap Smear 2012 Cervical Cancer Screening (CCS) 2021 HPV/Cotest 2021 Influenza Immunization (#1) 2024 SARS-COV-2 Immunization ( season) 2024 Respiratory Syncytial Virus (RSV) Immunization (Adult) (1 - 1-dose 75+ series) 2066 Meningococcal Immunization (ACWY) Aged Out No longer eligible based on patient's age to complete this topic Pneumococcal Immunization Combined Aged Out No longer eligible based on patient's age to complete this topic Rotavirus Immunization Aged Out No lo nger eligible based on patient's age to complete this topic
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
--- OUTSIDE RECORDS SUMMARY | 2024-10-26 01:26 | XMS_ITS | Data Portability ---
Author Organization [facility] Address [address] [place] [address] [place] [address] Care Team Providers Care Intermediate Teacher Name Role Phone ALEXEY PARISH Primary Care Provider Assessment No assessment recorded. Plan of Treatment Reminders Order Date Submit Date Provider Last Modified By Organization Details Last Modified Time Details Appointments SURG Diagnosti c Lap 2024 09:00A Pete MAI MD Not available Not available Not available Lab progester one, serum 2022 023 [email or web address] [facility] (Lab), [address], [place], [address], 11/27/2022 15:25:56 Referral None recorded. Procedures None recorded. Surgeries laparosco py, diagnosti c (SURG) 2024 025 [email or web address] [facility], [address], [place], [address], 10/18/2024 13:58:35 Imaging US, pelvis 2024 025 [email or web address] [place], [place], [address], 08/30/2024 23:03:15 US, transvagi nal 2024 025 [email or web address] [place], [address], [place], [address], 08/30/2024 23:03:15 US, pelvis, complete 2024 025 [email or web address] [place], [facility] [address], [place], [address], 10/05/2024 11:19:18 Medication Orders spironola ctone 100 mg tablet 2022 [facility]23 [id number], [address], [id number], 08/29/2024 14:21:41 metformin 500 mg tablet 2022 023 [email or web address] [facility] [employer] [facility][id number], [address], [place], [id number], 08/29/2024 14:21:12 Patient TargetsNo targets recorded. Patient InstructionsNo instructions recorded. Reason for Referral None Reported. Results Created Date Observation Date Name Description Value Unit Range Abnormal Flag Note LastModifiedBy Organization Detail LastModifiedTime 08/29/1908/29/2024 [facility], SHARAN bacterial vaginosis (bv), tma Positi ve negati ve abnormal Not Available [facility] (Lab) [address] [place], [address], 09/01/2024 07:30:13 08/29/19 25 08/29/2024 [facility] josh species, tma Negati ve negati ve Not Available [facility] (Lab) [address] [place], [address], 09/01/2024 07:30:13 08/29/19 25 08/29/2024 [facility] josh glabrata, tma Negati ve negati ve Not Available [facility] (Lab) [address] [place], [address], 09/01/2024 07:30:13 08/29/19 25 08/29/2024 [facility], SHARAN trichomonas vaginalis, tma Negati ve negati ve Not Available [facility] (Lab) [address] [facility], [place], [address], 09/01/2024 07:30:13 08/29/19 25 08/29/2024 [facility], SHARAN chlamydia trachomatis, PCR Negati ve negati ve Not Available [facility] (Lab) [address] [place], [address], 09/01/2024 07:30:13 08/29/19 25 08/29/2024 [facility] SHARAN neisseria gonorrhoeae, PCR Negati ve negati ve Bacte rial vagin osis detec ts the follo wing bacte isaias assoc iated with bacte rial vagin osis (BV): Lacto bacil arsen (L. gasse ri, L. crisp atus and L. jense rohit), Gardn erell a vagin natalee, and Atopo bium vagin ae. A singl e quali tativ e resul t is repor catrachita base on instr ument softw are to deter mine BV posit antolin or negat antolin statu s. The [place] [facility] speci es group tests for C. albic ans, C. tropi calis , C. parap oliverio is, C. dubli niens is. Testi ng is perfo rmed using the Trans cript ion Media catrachita Ampli ficat ion metho d. Tests for Florence da glabr ellen, Trich omona s vagin natalee, Chlam ydia trach omati s, and Neiss eria gonor rhoea e are also inclu ded in this panel . Not Available [facility] (Lab) [address], [place], [address], 09/01/2024 07:30:13 08/25/19 23 08/12/2022 CT, abdom en + pelvi s, w/ contr ast No observ ation record ed. [address], [place], [address], 08/27/2022 11:51:54 08/28/19 23 08/28/2022 US, pelvi s No observ ation record ed. [email or web address] [place] [address], [place], [address], 08/28/2022 18:18:58 08/28/19 23 08/28/2022 US, trans vagin al No observ ation record ed. [email or web address] [place] [address], [place], [address], 08/28/2022 18:18:48 08/28/19 23 08/28/2022 US, pelvi s No observ ation record ed. [email or web address] [address] [address], [place], [address], 08/28/2022 20:38:10 08/30/19 25 08/30/2024 US, pelvi s No observ ation record ed. [email or web address] [place] [address], [place], [address], 08/30/2024 13:53:56 08/30/19 25 08/30/2024 US, trans vagin al No observ ation record ed. [email or web address] [place] [address], [place], [address], 08/30/2024 13:54:06 08/30/19 25 08/30/2024 US, pelvi s No observ ation record ed. [email or web address] [address], [place], [address], 09/05/2024 12:11:51 Result Notes None recorded. Procedures Surgical History Date Name Laterality Status Provider Name and Address Organization Details Recorded Time 02/25/2024 Date of Last Pap Smear completed Kathleen Aragon [facility] 08/29/2024 14:22:07 08/27/2003 tonsilecto my/adenoid s completed Inna Silverio [facility] 01/31/2021 10:47:37 Imaging Results Imaging Date Name Status LastModified by Organization Details LastModified Time 08/12/2022 CT, abdomen + pelvis, w/ contrast completed [email or web address] [place] [address] [address], [place], [address], 08/27/2022 11:51:54 08/28/2022 US, pelvis completed [email or web address] [place] [address], [place], [address], 08/28/2022 18:18:58 08/28/2022 US, transvaginal completed [email or web address] [place] [address], [place], [address], 08/28/2022 18:18:48 08/28/2022 US, pelvis completed [email or web address] [address], [place], [address], 08/28/2022 20:38:10 08/30/2024 US, pelvis completed [email or web address] [place] [address], [place], [address], 08/30/2024 13:53:56 08/30/2024 US, transvaginal completed [email or web address] [place] [address], [place], [address], 08/30/2024 13:54:06 08/30/2024 US, pelvis completed [email or web address] [address], [place], [address], 09/05/2024 12:11:51 Procedure Notes None recorded. Medical Equipment None Reported. Allergies Allergen ID Allergen Name Allergen Category Reaction Reaction Severity Criticality Documentation Date Start Date Code Code System Note Provider Name and Address Organization Details Recorded Time 12804 amoxicill in medicatio n Not available Not available Not available 01/31/20212016 723 RxNorm Other react ions and sever ities : 'Unkn own'. Nelly Weissse arrieta [facility] 2 10:05:27 85858 erythromy felipe medicatio n rash Not available Not available 01/31/20211991 4053 RxNorm Inna Jean Claude arrieta [facility] 1 10:47:35 84273 penicilli n V potassium medicatio n rash Not available Not available 01/31/20211991 87439 [address] [facility] 1 10:47:35 83790 lactose food,medi cation diarrhea severe Not available 01/31/20211991 [address] [facility] 1 10:47:35 75412 Penicilli n Not available rash Not available Not available 01/31/20211991 15777 RxNorm Inna arrieta, [facility] 1 10:47:35 59620 cephalexi n medicatio n Not available Not available Not available 01/31/20212016 2231 RxNorm Other react ions and sever ities : 'Unkn own'. Nellynidia arrieta [facility] 2 10:05:27 92046 amoxicill in trihydrat e medicatio n rash Not available Not available 01/31/20211991 08363 [address] [facility] 1 10:47:35 12539 erythromy felipe medicatio n Not available Not available Not available 11/06/20212016 4053 RxNorm Other react ions and sever ities : 'Unkn own'. Nelly arrieta [facility] 2 10:05:27 11402 penicilla mine medicatio n rash mild Not available 11/06/20212020 7975 RxNorm Nelly Cooper [facility], [facility] 2 10:05:27 10451 sulfur dioxide medicatio n rash mild Not available 11/06/20211991 19777 79 RxNorm Nelly Cooper [facility], [facility] 2 10:05:27 30395 nishorace ne medicatio n rash mild Not available 11/06/20212020 7435 RxNorm Nelly Cooper [facility], [facility] 2 10:05:27 Medications Name Sig Start Date Stop Date Status Note LastModified by Organization Details LastModified Time cyclobenzap rine 10 mg tablet TAKE 1 TABLET BY MOUTH TWICE DAILY NEEDED active Not Available Not Available No t Available medroxyprog esterone 10 mg tablet TAKE 1 TABLET BY MOUTH EVERY DAY FOR 7 DAYS 06/24 completed Not Available Not Available Not Available metformin 500 mg tablet Take 500 mg twice a day by oral route. 08/29 completed Not Available Not Available Not Available promethazin e-DM 6.25 mg-15 mg/5 mL oral syrup TAKE 5 ML BY MOUTH EVERY 4 HOURS NEEDED FOR COUGH 08/29 completed Not Available Not Available Not Available albuterol sulfate 2.5 mg/3 mL (0.083 %) solution for nebulizatio n USE 1 VIAL VIA NEBULIZER EVERY 6 HOURS NEEDED FOR WHEEZING OR SHORTNESS OF BREATH active Not Available Not Available No t Available azithromyci n 250 mg tablet TAKE 2 TABLETS BY MOUTH FOR 1 DAY THEN TAKE 1 TABLET BY MOUTH DAILY FOR 4 DAYS 08/29 completed Not Available Not Available Not Available benzonatate 200 mg capsule 08/29 completed Not Available Not Available Not Available sumatriptan 100 mg tablet TAKE 1 TABLET BY MOUTH AT EARLY ONSET OF MIGRAINE NEEDED 08/29 completed Not Available Not Available Not Available metronidazo le 0.75 % (37.5 mg/5 gram) vaginal gel Insert 1 applicato rful every day by vaginal route at bedtime for 5 days. 2024 active Not Available Not Available Not Avai lable prednisone 20 mg tablet TAKE 2 TABLETS BY MOUTH DAILY WITH FOOD OR MILK 08/29 completed Not Available Not Available Not Available spironolact one 100 mg tablet Take 1 tablet every day by oral route. 08/29 completed Not Available Not Available Not Available clindamycin HCl 150 mg capsule TAKE 1 CAPSULE BY MOUTH TWICE DAILY FOR 7 DAYS 04/07 completed Not Available Not Available Not Available clotrimazol e 1 % vaginal cream INSERT ONE APPLICATO RFUL VAGINALLY EVERY DAY FOR 7 DAYS 08/29 completed Not Available Not Available Not Available nifedipine ER 30 mg tablet,exte nded release 08/29 completed Not Available Not Available Not Available acetaminoph en 500 mg tablet 08/29 completed Not Available Not Available Not Available ondansetron 8 mg disintegrat ing tablet DISSOLVE 1 TABLET ON THE TONGUE TWICE DAILY 08/29 completed Not Available Not Available Not Available ciclopirox 8 % topical solution APPLY A TO 2 DROPS QD TO NAILS 06/24 completed Not Available Not Available Not Available terbinafine HCl 250 mg tablet 250 mg by oral route. 06/17 completed Not Available Not Available Not Available OneTouch Ultra Test strips USE ONE STRIP DAILY DIRECTED 08/29 completed Not Available Not Available Not Available amitriptyli ne 10 mg tablet Take 10 mg by oral route. 08/29 completed Not Available Not Available Not Available benzonatate 100 mg capsule active Not Available Not Available Not Available doxycycline monohydrate 100 mg capsule TAKE 1 CAPSULE BY MOUTH TWICE DAILY WITH MEALS FOR 7 DAYS 04/07 completed Not Available Not Available Not Available oseltamivir 75 mg capsule active Not Available Not Available Not Available docusate sodium 100 mg capsule TAKE ONE CAPSULE BY MOUTH TWICE DAILY NEEDED FOR CONSTIPAT ION 08/29 completed Not Available Not Available Not Available ibuprofen 600 mg tablet Take 600 mg every 6 hours by oral route. 08/29 completed Not Available Not Available Not Available norethindro ne (contracept antolin) 0.35 mg tablet TAKE 1 TABLET BY MOUTH EVERY DAY 08/29 completed Not Available Not Available Not Available fluticasone propionate 50 mcg/actuati on nasal spray,suspe nsion INSTILL 2 SPRAYS INTO EACH NOSTRIL DAILY. 06/24 completed Not Available Not Available Not Available clotrimazol e 1 % topical cream DIMITRIS EXT AA BID 03/13 completed Not Available Not Available Not Available loratadine 10 mg tablet TAKE 1 TABLET BY MOUTH DAILY. 03/13 completed Not Available Not Available Not Available Ventolin HFA 90 mcg/actuati on aerosol inhaler 2019 active Not Available Not Available Not Avai lable etonogestre l 0.12 mg-ethinyl estradiol 0.015 mg/24 hr vaginal ring Insert 1 ring vaginally , leave in place for 3 weeks, followed by 1 ring free week 08/29 completed Not Available Not Available Not Available Flovent HFA 44 mcg/actuati on aerosol inhaler Inhale 1 {puff} twice a day by inhalatio n route. 08/29 completed Not Available Not Available Not Available Contrave 08/29 completed Not Available Not Available Not Available Tyaglkathrine Yadav U-100 Insulin 100 unit/mL (3 mL) subcutaneou s INJECT 20 UNITS UNDER THE SKIN NIGHTLY 08/29 completed Not Available Not Available Not Available BD Michelle 2nd Gen Pen Needle 32 gauge x 5/32 USE FOUR TIMES DAILY WITH MEALS AND AT NIGHT 08/29 completed Not Available Not Available Not Available OneTouch Delica Plus Lancet 33 gauge USE TO TEST BLOOD SUGAR FOUR TIMES DAILY 08/29 completed Not Available Not Available Not Available FreeStyle Poppy 3 Sensor device APPLY ONE SENSOR EVERY 14 DAYS 08/29 completed Not Available Not Available Not Available Vitals Date Recorded Body height Body mass index (BMI) Body weight Systolic blood pressure Diastolic blood pressure Provider Name and Address Organization Details Last Updated DateTime 08/29/2022 168.28 cm 53.8 kg/m2 766364.0 4 g 129 mm[Hg] 84 mm[Hg] Jaleesa Farida [facility] 3 11:04:33 Date Recorded Body height Body mass index (BMI) Body weight Systolic blood pressure Diastolic blood pressure Provider Name and Address Organization Details Last Updated DateTime 08/29/2024 168.28 cm 50.5 kg/m2 571605.6 g 137 mm[Hg] 83 mm[Hg] Kathleen Faither [facility] 5 14:19:59 Date Recorded Body height Body mass index (BMI) Body weight Systolic blood pressure Diastolic blood pressure Provider Name and Address Organization Details Last Updated DateTime 09/13/2024 168.28 cm 50.9 kg/m2 957404.3 7 g 144 mm[Hg] 82 mm[Hg] Kathleen Mahesh [facility] 5 11:11:59 Social History Question Answer Notes LastModified by Organizat ion Details LastModified Time Tobacco Smoking Status Never Smoker Michlele arrieta, [facility] 09/01/2022 16:37:41 Do You Have An Advance Directive? No Information n ot available 01/31/2021 What Is Your Level Of Alcohol Consumption? Occasional Information not available 11/07/2021 How Many Years Have You Consumed Alcohol? 12 [email or web address] Information not available 01/31/2021 Are You Blind Or Do You Have Difficulty Seeing? No Information n ot available 11/07/2021 What Is Your Level Of Caffeine Consumption? Occasional [email or web address] Information not available 01/31/2021 How Much Tobacco Do You Chew? None [email or web address] Information not available 01/31/2021 In The 14 Days Before Symptom Onset, Have You Had Close Contact With A Laboratory-confirm ed COVID-19 While That Case Was Ill? No [email or web address] Information n ot available 01/31/2021 In The 14 Days Before Symptom Onset, Have You Had Close Contact With A Person Who Is Under Investigation For COVID-19 While That Person Was Ill? No [email or web address] Information not available 01/31/2021 Have You Been To An Area Known To Be High Risk For COVID-19? No [email or web address] Information not available 01/31/2021 Are You Deaf Or Do You Have Serious Difficulty Hearing? No [email or web address] Information not available 01/31/2021 What Type Of Diet Are You Following? REGULAR Information n ot available 01/31/2021 What Is The Highest Grade Or Level Of School You Have Completed Or The Highest Degree You Have Received? 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 No [email or web address] Information not available 01/31/2021 Do You Use Protection During Sex? Always [email or web address] Information not available 01/31/2021 Do You Use Your Seat Belt Or Car Seat Routinely? Yes [email or web address] Information not available 01/31/2021 Do You Have Smoke And Carbon Monoxide Detectors In Your Home? Yes [email or web address] Information not available 01/31/2021 At What Age Did You Start Smoking Tobacco? 1 [email or web address] Information not available 01/31/2021 How Much Tobacco Do You Smoke? No [email or web address] Information not available 01/31/2021 Do You Feel Stressed (tense, Restless, Nervous, Or Anxious, Or Unable To Sleep At Night)? [id number] [email or web address] Information not available 01/31/2021 Do You Use Any Illicit Or Recreational Drugs? No [email or web address] Information not available 01/31/2021 Do You Use Sunscreen Routinely? Yes Information not available 01/31/2021 How Many Years Have You Smoked Tobacco? 0 [email or web address] Information not available 01/31/2021 Have You Used IV Drugs? No [email or web address] Information not available 01/31/2021 Sex: Unknown Functional Status Question Answer Note LastModified by Organizat ion Details LastModified Time Do you have difficulty walking or climbing stairs? No Information not available 09/01/2022 Are you able to walk? YESWOREST [email or web address] Information not available 01/31/2021 Are you able to care for yourself? Yes Information not available 09/01/2022 Do you have difficulty dressing or bathing? No Information not available 09/01/2022 What is your exercise level? Moderate Information not available 01/31/2021 Mental Status None recorded. Family History Relationship Description Onset Age of this Age Resolved Age Notes LastModified by Organization Details LastModified Time Maternal Aunt Asthma 46 [email or web address] Not darren ilable 08/24/2024 14:08:08 Maternal Aunt Asthma 42 Not darren ilable 08/24/2024 14:08:08 Maternal Aunt Asthma [email or web address] Not darren ilable 08/24/2024 14:08:08 Mother Asthma 47 [email or web address] Not available 08/24/2024 14:08:08 Mother Asthma [email or web address] Not available 08/24/2024 14:08:08 Maternal Grandfather Diabetes mellitus 67 [email or web address] Not available 2024 14:08:08 Maternal Grandfather Asthma 67 [email or web address] Not available 07/28 14:08:08 Maternal Grandfather Asthma [email or web address] Not available 07/28 14:08:08 Maternal Grandfather Diabetes mellitus Not available 2024 14:08:08 Medical History Condition Response Allergies (Food, seasonal, environmental ) Y Other N Drug/Latex Allergies/Reactions N Blood Transfusion N Breast Cancer N Dermatologic Disorders N Lung Disease N Defects or Inherited Disease N Breast Problem N Gestational Diabetes Y Hematologic disorders N Anesthesia Complications N History of STI N Deep Vein Thrombosis N Polycystic ovary syndrome Y Anxiety Disorder N Autoimmune disease N Arthritis N Polyps N Infertility N Acid Reflux (GERD) Y History of abnormal pap N Cancer N Varicosities N Stroke N Neurologic/Epilepsy N Endometriosis Y High Cholesterol N Fibromyalgia N Headaches N Kidney Disease N Heart Problems N Thyroid Problems N Kidney or Bladder Problems N GI Problems N Eating Disorder N Anemia N Art (IVF or FET) N Psychiatric Illness N Ovarian Cancer N Diabetes Y Pulmonary (TB, Asthma) N Hepatitis/Liver Disease N No Past Medical History N Eczema N Urinary Tract Infection N Abuse/Domestic Violence N Asthma Y Trauma/Violence N Depression/ depression N Heart Disease N Pre-Eclampsia N Hypertension N Osteoporosis N Thrombophilias N Gynecological History Statement/Question Response Abnormal Pap N Flow Moderate Date of Last Mammogram Date of LMP 08/26/2024 Was last menstrual period normal Y STIs/STDs Y HPV Vaccine N Duration of Flow (days) 4 Current Control Method Withdrawal Are cycles usually normal N Frequency of Cycle (Q days) 32 Sexually Active? Y Menses Monthly Y Age of first menstrual cycle 14 Date of Last Pap Smear 02/25/2024 Sexual Problems? N LMP Definite Obstetrics History GPAL:G 1 P 0 0 0 1 Type Value Living 1 Total 1 Immunizations Vaccine Type Date Status Note Provider Nam e and Address Organization Details Recorded Time Hep B, adolescent or pediatric 7 completed Nelly Kenneth null, [facility] 11/06/2021 10:06:25 pneumococcal polysaccharide PPV23 7 completed Nelly Kenneth null, [facility] 11/06/2021 10:06:25 Hib (PRP-D) 2 completed Nelly Kenneth null, [facility] 11/06/2021 10:06:25 OPV, Unspecified 2 completed Nelly Kenneth null, [facility] 11/06/2021 10:06:25 Hep B, adolescent or pediatric 0 completed Nelly Kenneth null, [facility] 11/06/2021 10:06:25 Hep B, adolescent or pediatric 8 completed Nelly Kenneth null, [facility] 11/06/2021 10:06:25 Hep B, adolescent or pediatric 2 completed Nelly Kenneth null, [facility] 11/06/2021 10:06:25 Hep A, ped/adol, 2 dose 0 completed Nelly Kenneth null, [facility] 11/06/2021 10:06:25 DTP-Hib 2 completed Nelly Kenneth null, [facility] 11/06/2021 10:06:25 DTP-Hib 2 completed Nelly Kenneth null, [facility] 11/06/2021 10:06:25 meningococcal MCV4P 6 completed Nelly Kenneth null, [facility] 11/06/2021 10:06:25 DTaP 6 completed Nelly Kenneth null, [facility] 11/06/2021 10:06:25 DTP-Hib 6 completed Nelly Kenneth null, [facility] 11/06/2021 10:06:25 MMRV 3 completed Nelly Kenneth null, [facility] 11/06/2021 10:06:25 Hib (PRP-D) 2 completed Nelly Kenneth null, [facility] 11/06/2021 10:06:25 Hep A, ped/adol, 2 dose 6 completed Nelly Kenneth null, [facility] 11/06/2021 10:06:25 OPV, Unspecified 6 completed Nelly Kenneth null, [facility] 11/06/2021 10:06:25 DTP-Hib 2 completed Nelly Kenneth null, [facility] 11/06/2021 10:06:25 Hep B, adolescent or pediatric 2 completed Nelly Kenneth null, [facility] 11/06/2021 10:06:25 Hep B, adolescent or pediatric 2 completed Nelly Kenneth null, [facility] 11/06/2021 10:06:25 DTP-Hib 3 completed Nelly Kenneth null, [facility] 11/06/2021 10:06:25 influenza, unspecified formulation 7 completed Nelly Kenneth null, [facility] 11/06/2021 10:06:25 Tdap 0 completed Nelly Kenneth null, [facility] 11/06/2021 10:06:25 OPV, Unspecified 2 completed Nelly arrieta, [facility] 11/06/2021 10:06:25 Hib (PRP-D) 2 completed Nelly arrieta, [facility] 11/06/2021 10:06:25 OPV, Unspecified 3 completed Nelly Cooper null, [facility] 11/06/2021 10:06:25 MMRV 6 completed Nelly [facility] [email or web address], [facility] 11/06/2021 10:06:25 Hib (PRP-D) [address] [facility], [facility] 11/06/2021 10:06:25 Past Encounters Encounter ID Performer Location Encounter Start Date Encounter Closed Date Diagnosis/Indication Diagnosis SNOMED-CT Code Diagnosis ICD10 Code Diagnosis Note [id number] Myesha Pace [place] [address] [address] 01/31/2021 10:33:36 01/31/2021 11:08:40 Gynecologic examination [id number] Z01.419 Take Calcium with Vitamin D 1200mg daily if not receiving in daily diet. It is strongly advised to have an annual flu shot and up can obtain at most pharmacies . If you have not had a TDap shot in the last 10 years you should obtain one as well. Discussed with patient & provided with informatio n regarding Gardisil vaccine to prevent the 4 strains for HPV that cause cervical cancer if under age 26. Encourage safe sexual practices, to use condoms and limit partners if not already in a monogamous relationsh ip. Do monthly self breast exams. Have mammogram yearly or every other year depending on family history. BRCA testing is now available for patients with strong genetic history of female cancer. If interested contact the office. Engage in daily exercise of low impact aerobic exercise 45-60 minutes 4-5 times weekly. Avoid tobacco and illicit drugs as well as using moderation with alcohol intake less than 1-2 8 oz beverages daily. This lifestyle behavior pattern will lead to less health conditions and longer life span. If BMI greater than 25 weight watchers or dietary consult advised. Patient received above instructio ns, and questions have been answered. If you have any questions please call or respond to this email. Patient was made aware of the patient portal and may obtain a paper copy of today's plan if desired. Abnormal u terine bleeding [id number] 9100 N93.9 Abnormal v aginal bleeding [id number] N93.9 States she was told in the past that she probably has pcos. Discussed importance of regular shedding of uterine lining if not being suppressed . Will check labs and u/s d/t symptoms and abnormal bleeding. RTC to discuss u/s results and lab results at the same time and determine treatment plan. [id number] Blanquita Zuleta [facility] [address],[place] [address] 02/11/2021 14:10:08 02/11/2021 14:37:32 Abnormal uterine bleeding [id number] 9100 N93.9 [id number] [facility] [address],[place] [address] 03/13/2021 14:03:17 03/15/2021 13:55:18 [id number] Edith Hammer MD [facility] [address],[place] [address] 03/13/2021 16:10:21 03/17/2021 22:36:02 Body mass index 40+ - severely obese [id number] Z68.43 Type 2 bharti betes mellitus 22336859 E11.9 Polycystic ovary syndrome 290702305 E28.2 Oligomenorrhea 44599946 N91.5 Contracept ion care management 660445128 Z30.9 [id number] Edith Hammer MD [facility] [address],[place] [address] 06/24/2021 11:15:53 06/24/2021 12:00:44 Pelvic floor tension 951611452 R29.898 Polycystic ovary syndrome 031111791 E28.2 Body mass index 40+ - severely obese 661687525 Z68.43 [id number] SVETA NortonTAYO [facility] [address],[place] [address] 11/07/2021 14:18:32 11/07/2021 16:16:31 Venereal disease screening [id number] Z11.3 Vulvar exam normal, speculum exam normal.Nor mal appearing vaginal discharge, no irritation or lesions noted.STI testing sent, will await results. (vaginitis panel, GC/CT endocervic al swab, blood STI panel)Urin e hCG (-) today.Windy ent to schedule WWE as she is due. Time spent with patient was 25 minutes. Sexually t ransmitted infectious disease 0907389 A64 Gynecologi c examination 00717569 Z01.419 [id number] Abigail Terry TAYO [facility] [address] [address] 12/02/2021 17:02:29 12/02/2021 17:45:58 Venereal disease screening 336404603 Z11.3 Here for MACHELLE from chlamydia infection. Patient completed full course of treatment. No current symptoms.G C/CT endocervic al swab collected. BP today 140/98. No symptoms. She just had an albuterol treatment. She will call her PCP to notify them of her BP. Red flag symptoms discussed with patient.RT C for WWE due in January Time spent with the patient was 25 minutes Chlamydial infection 105 682244 A74.9 [id number] Abigail Terry TAYO [facility] [address] [address] 03/25/2022 16:11:59 03/25/2022 17:55:14 Pain in pelvis 73925175 R10.2 We agreed to update STI testing and pelvic u/s for further evaluation Will await testing and discuss management options at u/s f/u appointmen Catrachita precaution s discussed (worsening pelvic pain, heavy vaginal bleeding, fevers, etc) Time spent in visit is a total of 25 mins with at least 50% of visit consisting of counseling and review of plan of care. Contracept ion care management 547810952 Z30.9 Venereal d isease screening 483199732 Z11.3 [id number] Lainey Osorio [facility] [address] [address] 04/01/2022 16:34:30 04/02/2022 14:36:18 Pain in pelvis 96081408 R10.2 [id number] Abigail TerryGUY [facility] [address],[place] [address] 04/07/2022 16:34:54 04/07/2022 17:25:39 Abdominal pain 55569179 R10.9 We reviewed pelvic u/s result : normal appearing uterus with normal appearing endometriu mPolycysti c ovaries. She has a hx of PCOS, having regular monthly menses.We agreed to GI consult for evaluation of potential GI cause of painReferr al [facility] [id number] Z30.9 She would like to start BCDenies hx of DVT/PE, HTN, Stroke/ME, cancer, liver disease, or migraine with auraShe was on NuvaRing before and would like to try that Discussed all control options in great detail. Pt would like to start Nuva Ring. She does not have any medical condition that is contraindi cated with the use of estrogen containing control. She will place first ring on the first day of next period, leave in place for 3 weeks, followed by 1 ring free week. She is aware it is not effective for control the first month.. Encouraged use of condoms as the nuvaring does not protect against STD's. Will return in 3 months for med check. Consent was read and signed. Pt verbalized understand ing. RTC in 3 months for med check Time spent in visit is a total of 25 mins with at least 50% of visit consisting of counseling and review of plan of care. [id number] Lainey Osorio [facility] [address],[facility] [place] [address] 08/28/2022 16:27:31 08/29/2022 12:09:55 Imaging result abnormal [id number] R93.89 R10.2 [id number] Juan Mai MD [facility] [address] [address] 08/29/2022 10:41:56 08/30/2022 22:03:06 [id number] Juan Mai MD [facility] [address] [address] 09/01/2022 16:37:35 09/01/2022 16:49:51 Polycystic ovary syndrome 458486919 E28.2 Hirsutism 001913629 L68. 0 this patient is a 32-year-ol d female with a history of abnormal bleeding and polycystic ovarian syndrome. We discussed her ultrasound today. We discussed her current bleeding. Her current bleeding is regular. It has a predictabl e timing. She does nice any premenstru al symptoms. We agreed to check for a day 25 progestero ne. We discussed abnormal uterine bleeding and amenorrhea . We discussed polycystic ovarian syndrome. We discussed the diagnosis. We discussed the underlying disease process. We discussed laboratory evaluation . We discussed her ultrasound and laboratory results. We discussed the prevention of endometria l cancer. We discussed protecting the endometriu m and how that is carried out. We discussed treatment in the context of a desired . We discussed medical treatment. We discussed the risk associated with PCOS and long-term health outcomes. We spent over 20 minutes face-to-fa ce. More than 50% was counseling . This was actually a phone call. We agreed to treat with metformin and spironolac tone. She will follow-up in 3 months. [id number] GUY Norton [facility] [address] [address] 08/29/2024 14:10:45 08/30/2024 09:48:49 Pain in pelvis 93652302 R10.2 Discussed symptoms, recommende d restarting pelvic floor physical therapySTI screen declinedpe lvic u/s orderedcon traception options reviewed, declined at this timequesti ons answered. Will reach out to pt with u/s results and discuss next steps Time spent in visit is a total of 25 mins with at least 50% of visit consisting of counseling and review of plan of care. Dysmenorrhea [id number] N 94.6 [id number] Blanquita Zuleta [facility] [address] [address] 08/30/2024 11:32:59 08/30/2024 12:09:20 Pain in pelvis 40655384 R10.2 [id number] Juan Mai MD [facility] [address] [address] 09/13/2024 11:00:24 09/13/2024 12:06:03 Pain in pelvis 57365132 R10.2 34-year-ol d female with pelvic pain. We have agreed to perform diagnostic laparoscop y. She understand s the risks, benefits, and alternativ es. She has completed the consent process and is ready to proceed. I spent over 30 minutes on her care in total. Health Concerns Section Related Observation LastModified by Organization Detai ls LastModified Time None Recorded Concern Status LastModified by Organization Details LastModified Time None Recorded Advance Directives Directive N: Payers Encounter Date Sequence Insurance Name Policy Number Policy Baker Covered Member ID Baker Member ID Guarantor Name 08/29/2022 1 [employer] - ALLIED BENEFITS - OPEN ACCESS [id number] Erin Chrissy [id number] Erin Chrissy 09/01/2022 1 [employer] - ALLIED BENEFITS - OPEN ACCESS [id number] Erin Lowe [id number] Erin Lowe 08/29/2024 2 [facility] - DOS ON OR AFTER 21 (MEDICAID REPLACEMENT - HMO) Erin Lowe [id number] Erin Lowe 08/29/2024 1 [employer] - ALLIED BENEFITS - OPEN ACCESS [id number] Erin Lowe [id number] Erin Lowe 08/30/2024 2 [facility] - DOS ON OR AFTER 21 (MEDICAID REPLACEMENT - HMO) Erin Chrissy [id number] Erin Chrissy 08/30/2024 1 [employer] - ALLIED BENEFITS - OPEN ACCESS [id number] Erin Lowe [id number] Erin Lowe 09/13/2024 2 [facility] - DOS ON OR AFTER 21 (MEDICAID REPLACEMENT - HMO) Erin Lowe [id number] Erin Lowe 09/13/2024 1 [employer] - ALLIED BENEFITS - OPEN ACCESS [id number] Erin Lowe [id number] Erin Chrissy Notes Date Note Type Note Provider Name and Address Organization Details Recorded Time 09/01/2022 text/html this patient is a 32-year-old female with a history of abnormal bleeding and polycystic ovarian syndrome. We discussed her ultrasound today. We discussed her current bleeding. Her current bleeding is regular. It has a predictable timing. She does nice any premenstrual symptoms. We agreed to check for a day 25 progesterone. We discussed abnormal uterine bleeding and amenorrhea. We discussed polycystic ovarian syndrome. We discussed the diagnosis. We discussed the underlying disease process. We discussed laboratory evaluation. We discussed her ultrasound and laboratory results. We discussed the prevention of endometrial cancer. We discussed protecting the endometrium and how that is carried out. We discussed treatment in the context of a desired . We discussed medical treatment. We discussed the risk associated with PCOS and long-term health outcomes. We spent over 20 minutes hrqi-lz-arem. More than 50% was counseling. This was actually a phone call. Juan Mai MD [address], [place], [address], [facility] 09/01/2022 16:40:20 08/29/2024 text/html 34yopresents for evaluation of pelvic painsymptoms started about 1 yr ago after having a vaginal birthbilateral lower ache and tailbone pain. Comes and goes, worse on her periods and with activityPreviously did pelvic floor physical therapy which improved symptoms neg d/c, odors, itchingneg n/v/fnormal bowel movementsno urinary symptoms GUY Norton [address], [place], [address], [facility] 08/30/2024 09:33:09 09/13/2024 text/html 34-year-old fema le with severe pelvic pain. For 2 months patient has had pelvic pain. She has pain with intercourse as well. Patient reports a sharp, right-sided pain that is intermittent. It is severe. It lasts hours. It affects her quality of life and activities daily living. We talked about treatment options. Patient is not sedated for some of the hormonal treatments. There would be an acceptable risk. She does not tolerate progesterone also. We agreed to perform diagnostic laparoscopy. The patient understands the procedure. The procedure was described to the patient in great detail. the patient also understands the risks. The risks were also explained in detail. She understands that injuries May occur during surgery. She understands these injuries can result in hospitalization, more surgery, and severe illness. She understands there is risk of hemorrhage and infection. Juan Mai MD [address], [place], [address], [facility] 09/13/2024 11:49:21 OBGyn Episode Ob Episode Information Episode Created Date Number of Fetuses Patient Bloodtype Patient rh Status Prepregnancy Weight lbs Domestic Partner Domestic Partner Phone Father Name Senior Accounting Manager Status 08/29/19 25 1 CLOSED Fetus Data First Name Last Name Admitted to NICU Weight (g) Sex Living Outcome Pediatric Complications Fetus ID Race Codes Race Delivery Type 2636.27 [id number] F Full Term [id number] Forcep Assisted Vaginal Delivery Corwin Calculation Initial Corwin Date Initial Exam Date Initial Exam Provider Initial Ultrasound Date Last Menstrual Period Date Ultra Sound Weeks Gestation 0 Eighteen To Twenty Week Corwin Update Ultra Sound Date Fundal Height At Umbil Quickening Date Ultra Sound Latest Weeks Gestation Final Corwin Confirmed By Final Corwin Confirmed Date Final Corwin Date Ultra Sound Latest Days Gestation 0 0 Menstrual History Last Menstrual Date Menses Monthly On Bcp Conception Prior Menses Frequency Hcg Plus Date Menarche Onset Age Delivery Information Delivery Date Delivery Type Labor Anesthesia Weeks Gestation Incision Type Labor Labor Length Hrs Delivered By Post Complications Tubal Sterilization Discharge Date Comments 4 39.1 Discharge Information Feeding Method Contraceptive Method Maternal HG B and HCT Levels
[2024-10-26] MEDS: ACETAMINOPHEN 500 MG TABLET 1000 MG PO (08:00)
--- NOTE | 2024-10-26 08:04 | P.PNAN_ITS ---
Anes - Initial Pre Proc Eval Procedure: Operation Date: 10/26/24 09:00 Proposed Procedures p Diagnostic Laparoscopy - Juan Mai MD Date/Time: 10/26/24 08:04 Surgeon: Juan Mai MD Pre Op Diagnosis: pelvic pain Patient Data Age: 34 Gender: F Height: 1.68 m Weight: 143.2 kg Allergies Allergy/AdvReac Type Severity Reaction Status Date / Time amoxicillin (From Trimox) Allergy Mild Rash Verified 10/03/24 11:48 cephalexin Allergy Mild Rash Verified 10/03/24 11:48 erythromycin base Allergy Mild Rash Verified 10/03/24 11:49 Penicillins Allergy Mild Rash Verified 10/03/24 11:48 Sulfa (Sulfonamide Allergy Mild Difficulty Verified 10/03/24 11:48 Antibiotics) Breathing Home Medications ?Medication ?Instructions ?Recorded ?Confirmed ?Type albuterol sulfate 2.5 mg/0.5 mL 2.5 mg inhalation Q20M 04/21/22 10/03/24 History solution for nebulization amitriptyline 10 mg tablet 10 mg PO QHS 04/21/22 10/03/24 History cyclobenzaprine 10 mg tablet 10 mg PO TID 04/21/22 10/03/24 History fluticasone propionate 50 2 inh inhalation Q12H 04/21/22 10/03/24 History mcg/actuation blister powder for inhalation (Flovent Diskus) naltrexone 8 mg-bupropion 90 mg 1 tablet PO ONCE 04/21/22 10/03/24 History tablet,extended release (Contrave) multivitamin (Daily Multi-Vitamin 1 tablet PO DAILY 10/03/24 10/03/24 History tablet) Patient hx anesthesia problems: none Family hx anesthesia problems: none Results Review: All pre-operative results and documents have been reviewed as part of the pre- operative evaluation. COUNTS INCLUDE 234 BEDS AT THE [facility] Past Medical History Medical History (Updated 10/25/24 @ 13:14 by Rohit James DO) PCOS (polycystic ovarian syndrome) Asthma Obese Abdominal pain Tonsillar enlargement Family History Family History Mother Asthma Diabetes mellitus Social History Social History Smoking status: Never smoker Alcohol intake: current Living arrangements: with family Spiritual care concerns: No Anes - Eval Final PreProcedure Day of Procedure 10/26/24 08:04 Patient weight: super morbidly obese Heart: regular rate and rhythm Lungs: clear to auscultation Airway: Mallampati scale class II Neurological: alert and oriented Last oral intake: >/= 8 hours ASA classification: III Emergent: no Anesthetic plan: proceed Anesthesia type and monitoring: general ETT and standard monitoring Results Review: All pre-operative results and documents have been reviewed as part of the pre- operative evaluation. Informed Consent: The patient's anesthetic plan and its attendant risks and benefits were discussed with the patient/family/POA. Questions were solicited and answers provided to the satisfaction of the patient/family/POA.
[2024-10-26] MEDS: KETOROLAC 15 MG/ML VIAL (*BKC) IV PUSH (08:15)
[2024-10-26] MEDS: LACTATED RINGERS 1,000 ML 30 ML IV CONT (08:15)
--- NOTE | 2024-10-26 08:35 | PM.IMHP ---
H&P: HPI History of Present Illness Date/Time: 10/26/24 08:35 Chief Complaint: Pelvic pain Narrative: 34-year-old female with pelvic pain. We have agreed to perform diagnostic laparoscopy. She understands the risks, benefits, and alternatives. She has completed the consent process and is ready to proceed. I spent over 30 minutes on her care in total. R10.2: Pelvic and perineal pain The patient understands the details of the procedure. The procedure has been explained in detail. She understands the risks. She understands that injuries may occur that result in hospitalization, more surgery, and severe illness. She understands risk of hemorrhage and infection. She denies any chest pain or shortness of breath. She denies any nausea, vomiting, fever, chills. Review of Systems Review of Systems: All systems reviewed & are unremarkable except as noted in HPI and below Constitutional: Constitutional: Denies chills, Denies fatigue, Denies fever(s) and Denies weakness Eyes: Eyes: Denies blurry vision, Denies change in vision, Denies loss of peripheral vision, Denies loss of vision, Denies other visual disturbances and Denies eye pain ENT: Denies vertigo, Denies dizziness, Denies hearing loss, Denies mouth pain, Denies nasal obstruction, Denies neck mass and Denies neck pain Cardiovascular: Cardiovascular: Denies chest pain, Denies diaphoresis, Denies syncope, Denies leg edema and Denies dyspnea Respiratory: Respiratory: Denies chest congestion, Denies cough, Denies hemoptysis, Denies dyspnea and Denies wheezing Gastrointestinal: Gastrointestinal: Denies abdominal pain, Denies constipation, Denies diarrhea, Denies nausea and Denies vomiting Genitourinary: Genitourinary: Denies hematuria, Denies change in libido, Denies nocturia, Denies genital lesions, Denies flank pain and Denies urinary urgency Musculoskeletal: Musculoskeletal: Denies abnormal gait, Denies back pain, Denies myalgias, Denies arthralgias, Denies joint swelling, Denies muscle weakness and Denies neck pain Integumentary/Breasts: Skin/Breast: Denies swelling, Denies breast pain, Denies breast mass, Denies dry skin, Denies nipple discharge, Denies unusual bruising and Denies jaundice Neurologic: Denies Neuro-related abnormal movements, Denies Abnormal speech present, Denies abnormal gait, Denies behavioral changes, Denies confusion, Denies vertigo, Denies dizziness, Denies syncope, Denies loss of vision, Denies memory loss, Denies convulsions and Denies weakness Psychiatric: Psychiatric: Denies abnormal sleep pattern, Denies behavioral changes, Denies change in libido, Denies confusion, Denies depression, Denies anhedonia and Denies memory loss Endocrine: Endocrine: Reports no additional endocrine complaints, Denies change in libido and Denies fatigue Hematologic/Lymphatic: Hematologic/Lymphatic: Reports no additional hematologic/lymphatic complaints Allergic/Immunologic: Allergic/Immunologic: Reports no additional allergic/immunologic complaints and Denies wheezing PMFSH Past Medical History Medical History (Updated 10/26/24 @ 08:36 by Juan Mai MD) PCOS (polycystic ovarian syndrome) Asthma Obese Abdominal pain Tonsillar enlargement Family History Family History Mother Asthma Diabetes mellitus Social History Social History Smoking status: Never smoker Alcohol intake: current Living arrangements: with family Spiritual care concerns: No Meds Home Medications and Allergies Home Medications ?Medication ?Instructions ?Recorded ?Confirmed ?Type albuterol sulfate 2.5 mg/0.5 mL 2.5 mg inhalation Q20M 04/21/22 10/03/24 History solution for nebulization amitriptyline 10 mg tablet 10 mg PO QHS 04/21/22 10/03/24 History cyclobenzaprine 10 mg tablet 10 mg PO TID 04/21/22 10/03/24 History fluticasone propionate 50 2 inh inhalation Q12H 04/21/22 10/03/24 History mcg/actuation blister powder for inhalation (Flovent Diskus) naltrexone 8 mg-bupropion 90 mg 1 tablet PO ONCE 04/21/22 10/03/24 History tablet,extended release (Contrave) multivitamin (Daily Multi-Vitamin 1 tablet PO DAILY 10/03/24 10/03/24 History tablet) Allergies Allergy/AdvReac Type Severity Reaction Status Date / Time amoxicillin (From Trimox) Allergy Mild Rash Verified 10/26/24 08:26 cephalexin Allergy Mild Rash Verified 10/26/24 08:26 erythromycin base Allergy Mild Rash Verified 10/26/24 08:26 Penicillins Allergy Mild Rash Verified 10/26/24 08:26 Sulfa (Sulfonamide Allergy Mild Difficulty Verified 10/26/24 08:26 Antibiotics) Breathing Exam Const: General: cooperative, healthy appearing, comfortable and no acute distress Orientation/consciousness: oriented to person, oriented to place and oriented to time HENMT: Head: normal to inspection Ears: external ears normal Face/Nose/Sinus: Normal external nose present and normal facial exam Face and sinus: normal facial exam Eyes: General: appearance normal, both eyes and all related structures Neck: Neck: normal visual inspection, trachea midline and supple Resp: Auscultation: clear to auscultation bilaterally, no crackles, no rales, no rhonchi and no wheezes Cardio: Rate: regular rate Rhythm: regular rhythm Heart sounds: no click, no murmurs and no rubs GI: GI Palp: No abdominal tenderness, No Soft to palpation, No Tenderness to palpation present (GI) and No Palpable mass present Auscultation: normal bowel sounds Skin: General skin exam: normal color and no rashes or lesions noted Neuro: General: oriented to person, oriented to place and oriented to time Extrem: General: normal to inspection, no joint enlargement, no clubbing, cyanosis or edema, no pedal edema and no calf tenderness Psych: Appearance: grossly normal Mental Status: mental status grossly normal Speech and movement: Normal speech and movement present Assessment and Plan Assessment and plan (1) Pelvic pain: Code(s): R10.2 - Pelvic and perineal pain Status: Acute Plan 34-year-old female with pelvic pain. We have agreed to perform diagnostic laparoscopy. She understands the risks, benefits, and alternatives. She has completed the consent process and is ready to proceed. I spent over 30 minutes on her care in total. R10.2: Pelvic and perineal pain
--- NOTE | 2024-10-26 08:36 | WPDHPUPDATE1 ---
History and Physical Update Update Date/Time: 10/26/24 08:36 History and Physical has been reviewed, including an updated exam of the patient. There are NO changes in the patient's condition. Risks, benefits, and alternatives have been discussed and questions answered. Patient agrees to proceed with procedure.
[2024-10-26 09:01] LABS: BEDSIDEPREGUCG Negative (Negative)
--- NOTE | 2024-10-26 09:50 | W.PM.PROC2 ---
Procedure Note - Detailed Date of Procedure 10/26/24 Pre-op Diagnosis pelvic pain Post-op Diagnosis Same Procedure Performed Diagnostic laparoscopy Surgeon Juan Mai MD Anesthesia General Indications Pelvic pain Findings Very large ovaries, otherwise normal pelvis with normal female genital anatomy. Description of Procedure The patient was taken to the operating room. She was prepped and draped in the dorsal lithotomy position after induction general anesthesia. A 5 mm incision was made with a scalpel on the abdominal skin in the left upper quadrant of the abdomen. A 5 mm trocar was inserted into the intra-abdominal cavity under direct visualization the scope. In the same fashion a 5 mm left lower quadrant trocar was inserted and a 5 mm infraumbilical trocar was inserted. Pelvis was examined thoroughly. The ovaries were very large. The pneumoperitoneum was reduced. The trocars were removed. Skin was closed with subcuticular 4 micro. The patient's incisions were covered with Dermabond. She was taken recovery room in stable condition. Sponge lap and needle counts were correct x2. Complications No immediate complications Condition Stable Disposition Same day
[2024-10-26] MEDS: fentaNYL CITRATE INJ (*CRX) 100 MCG/2 ML VIAL 25 MCG IV PUSH (10:11)
[2024-10-26 10:35] LABS: Glucose Point of Care 113 mg/dl (65-105)
[2024-10-26] MEDS: ONDANSETRON INJ 4 MG/2 ML VIAL IV PUSH (10:49)
[2024-10-26] MEDS: oxyCODONE HCL (*CRX) 5 MG TAB IR PO (11:13)
== END 2024-10-26 12:05 | disposition home or self-care (01) ==
PROVIDERS: Visit Provider Obstetrics & Gynecology
PROC: (CPT 49320; principal; 2024-10-26 09:00)
DX: N83.8 Other noninflammatory disorders of ovary, fallopian tube and broad ligament (principal); G89.18 Other acute postprocedural pain; E28.2 Polycystic ovarian syndrome; J45.909 Unspecified asthma, uncomplicated; E66.01 Morbid (severe) obesity due to excess calories; Z68.43 Body mass index [BMI] 50.0-59.9, adult; Z79.51 Long term (current) use of inhaled steroids
CPT/HCPCS: 49320; 82948; A9270; J1100; J1885; J2003; J2250; J2405; J2704; J3010; J7120